=== PATIENT | male | born 1965 ===

== ENCOUNTER 2022-01-27 15:26 | Emergency (ER) | payer BC ==
[2022-01-27] MEDS ORDERED: Azithromycin 250 MG Tab ONE (16:40)
[2022-01-27] MEDS ORDERED: predniSONE 10 MG Tab ONE (16:40)
[2022-01-27] MEDS ORDERED: Albuterol 8 GM Inhaler ONE (16:40)
[2022-01-27 16:49] LABS: CORONAVIRUS COVID-19 NAA NEGATIVE (NEGATIVE)
[2022-01-27] MEDS: Albuterol/Ipratropium 3.0-0.5 MG/3 ML Neb Soln ONE (17:19)
== END 2022-01-27 17:35 | disposition home or self-care (01) ==
LOC: LB.ED 15:26
DX: J21.9 Acute bronchiolitis, unspecified (principal); I10 Essential (primary) hypertension; F17.210 Nicotine dependence, cigarettes, uncomplicated; Z91.041 Radiographic dye allergy status; Z91.048 Other nonmedicinal substance allergy status; Z20.822 Contact with and (suspected) exposure to COVID-19
CPT/HCPCS: 87635; 87804; 94640; 99283; A9270; J7512; J7620; U0002